=== PATIENT | male | born 1955 | race Caucasian/White ===

== ENCOUNTER 2017-01-19 12:08 | Outpatient (RCR) | payer BC | END 2017-02-13 | disposition home or self-care (01) | LOC: COL.CR | DX: I21.4 Non-ST elevation (NSTEMI) myocardial infarction (principal) ==

== ENCOUNTER → 2018-06-13 | Outpatient (CLI) | payer BC | LOC: COL.CARD 15:27 | DX: I10 Essential (primary) hypertension (principal) ==

== ENCOUNTER → 2020-11-09 | Outpatient (CLI) | payer BC | LOC: COL.RAD 11-05 10:30 | DX: K80.50 Calculus of bile duct without cholangitis or cholecystitis without obstruction (principal) ==

== ENCOUNTER → 2020-12-01 | Outpatient (CLI) | payer BC | LOC: COL.RAD 11-23 11:45 | DX: K80.50 Calculus of bile duct without cholangitis or cholecystitis without obstruction (principal) | CPT/HCPCS: A9537 ==

== ENCOUNTER → 2023-06-12 | Outpatient (CLI) | payer BC | LOC: COL.RAD 11:03 | DX: I10 Essential (primary) hypertension (principal) ==

== ENCOUNTER → 2024-04-09 | Outpatient (CLI) | payer BC ==
[~2024-04-09] VITALS: Ht 180.3 cm; Wt 100.6 kg
[~2024-04-09] MED LIST: ASPIRIN E.C. 8181 MG PO; BENICAR40 MG PO; CENTRUM SILVER1 CTB PO; HYGROTON 2525 MG/TAB; LIPITOR 80MG80 MG PO; NORVASC 10MG10 MG PO; Regadenoson 0.08 MG/ML 5 ML SYRINGE IV SCH; TOPROL XL 50MG50 MG PO
[2024-04-09 07:22] VITALS: BP 131/78; PULSE 65; TEMP 98.9
[2024-04-09 09:20] VITALS: BP 156/90; PULSE 62
[2024-04-09 09:24] VITALS: BP 157/80; PULSE 100
[2024-04-09 09:25] VITALS: BP 160/91; PULSE 97
[2024-04-09 09:26] VITALS: BP 151/87; PULSE 89
== END ==
LOC: COL.RAD 06:59
DX: I25.10 Atherosclerotic heart disease of native coronary artery without angina pectoris (principal)
CPT/HCPCS: A9500-JZ; J2785